=== PATIENT | male | born 1975 | race Caucasian/White ===

== ENCOUNTER → 2017-12-17 | Outpatient (CLI) | payer OTHER ==
--- NOTE | 2017-12-19 08:17 | MR ---
EXAMINATION TYPE: MR cervical spine wo con DATE OF EXAM: 12/17/2017 COMPARISON: NONE HISTORY: Neck / shoulder pain, previous surgery, ordered Without Contrast TECHNIQUE: Multiplanar, multisequence images of the cervical spine were acquired. FINDINGS: Anterior cervical fusion device is seen spanning C4-C6. There is no evidence of postsurgical malalign ment. The spinal cord signal is patchy at the postsurgical levels centrally without extension to bartolome reanna acute edema. This indicates mild myelomalacia. Vertebral body heights are maintained. Bone marro w signal is unremarkable. Visualized portions of the posterior fossa are grossly unremarkable. C2-C3: No evidence for degenerative disc disease. No disc bulge/herniation or protrusion. No Canal stenosis. Foramina are patent bilaterally. C3-C4: There is a central broad-based disc herniation abutting the ventral subarachnoid space and flory tral cervical cord without alteration in cord signal. This creates mild spinal canal stenosis and mil d left neural foraminal narrowing. Right neuroforamen is patent. C4-C5: No evidence for degenerative disc disease. No disc bulge/herniation or protrusion. No Canal stenosis. Foramina are patent bilaterally. C5-C6: No evidence for degenerative disc disease. No disc bulge/herniation or protrusion. No Canal stenosis. Mild bilateral uncovertebral hypertrophy minimally narrows the bilateral neural foramen. C6-C7: There is a left paracentral disc herniation effacing the ventral subarachnoid space and contac ting the ventral cord creating mild spinal canal stenosis. No abnormal cord signal seen at this level . There is mild bilateral neural foraminal narrowing. No left neural foraminal narrowing is seen. C7-T1: No evidence for degenerative disc disease. No disc bulge/herniation or protrusion. No Canal stenosis. Foramina are patent bilaterally. IMPRESSION: 1. Disc herniations above and below the anterior cervical fusion levels. Central disc herniation at C 3-C4 creating mild spinal canal stenosis and mild left neural foraminal narrowing and left paracentra l disc herniation at C6-C7 creating mild spinal canal stenosis and mild bilateral neural foraminal na rrowing. 2. No evidence of postsurgical malalignment. No vertebral body height loss. 3. Subtle mildly abnormal signal from C4 through C6 within the spinal cord indicating mild myelomalac ia as there is no cord expansion.
== END | disposition home or self-care (01) ==
LOC: RADMRIMAIN 19:44
PROVIDERS: ATTEND Orthopaedic Surgery Orthopaedic Surgery of the Spine
DX: M48.02 Spinal stenosis, cervical region (principal); M99.71 Connective tissue and disc stenosis of intervertebral foramina of cervical region; M50.21 Other cervical disc displacement, high cervical region; Z98.1 Arthrodesis status
CPT/HCPCS: 72141

== ENCOUNTER 2023-10-22 08:51 | Emergency (ER) | payer MEDICARE, OTHER ==
--- NOTE | 2023-10-22 09:04 | ED ---
Neck Injury/Pain HPI - General Chief Complaint: Neck Pain/Injury Stated Complaint: Neck/Jaw Pain Time Seen by Provider: 10/22/23 08:56 Source: patient, RN notes reviewed Mode of arrival: ambulatory Limitations: no limitations - History of Present Illness Initial Comments: This is a 47-year-old male who presents to the emergency department for neck pain. Patient has a history of chronic neck pain including multiple herniated disks. He had an ACDF procedure in [address] Melara. States that he does still have disc herniations above and below the area of the fusions, and has continued to have severe episodes of pain. However, over the last couple of days the pain has gotten substantially worse. He has pains on both sides of the neck and this morning has been unable to turn his head due to the pain. He has taken multiple [id number] medications without any relief in symptoms. Most recently took Aleve about an hour before arrival. MD Complaint: neck pain - Related Data Home Medications Medication Instructions Recorded Confirmed Ibuprofen [Motrin Ib] 200 - 800 mg PO Q8H PRN 10/22/23 10/22/23 Previous Rx's Medication Instructions Recorded Ibuprofen [Motrin] 800 mg PO Q8H PRN #30 tab 10/22/23 methocarbamoL [Robaxin-750] 1,500 mg PO TID PRN #30 tab 10/22/23 Allergies Allergy/AdvReac Type Severity Reaction Status Date / Time Penicillins Allergy Unknown Verified 10/22/23 10:41 Childhood Review of Systems ROS Statement: Those systems with pertinent positive or pertinent negative responses have been documented in the HPI. ROS Other: All systems not noted in ROS Statement are negative. Past Medical History Additional Past Surgical History / Comment(s): spinal surgery Smoking Status: Current every day smoker Past Alcohol Use History: None Reported Past Drug Use History: Marijuana General Exam Limitations: no limitations General appearance: alert, in distress Head exam: Present: atraumatic, normocephalic, normal inspection Neck exam: Present: other (The bilateral neck muscles are very tight on palpation and exquisitely tender. Range of motion limited by pain.) Respiratory exam: Present: normal lung sounds bilaterally. Absent: respiratory distress, wheezes, rales, rhonchi, stridor Cardiovascular Exam: Present: regular rate, normal rhythm, normal heart sounds. Absent: systolic murmur, diastolic murmur, rubs, gallop, clicks Neurological exam: Present: alert, oriented X3, CN II-XII intact Psychiatric exam: Present: normal affect, normal mood Skin exam: Present: warm, dry, intact, normal color. Absent: rash Course Vital Signs 10/22/23 10/22/23 10/22/23 08:52 10:57 13:10 Temperature 98.8 F 97.9 F Pulse Rate 85 64 74 Respiratory 18 16 18 Rate Blood Pressure 138/88 122/74 123/76 O2 Sat by Pulse 100 99 98 Oximetry Medical Decision Making - Medical Decision Making This is a 47-year-old male who presents to the emergency department for neck pain. Was pt. sent in by a medical professional or institution? @ -No Did you speak to anyone other than the patient for history? @ -No Did you review nursing and triage notes? @ -Yes, and I agree, it is accurate with regards to the patient's symptoms. Were old charts reviewed? @ -No Differential Diagnosis? @ -Differential Neck Pain: Fracture, dislocation, contusion, strain, DDD, disc herniation, this is not meant to be an all-inclusive list. EKG interpreted by me (3pts min.)? @ -Not obtained X-rays interpreted by me (1pt min.)? @ -X-ray of the cervical spine obtained. My interpretation identifies no acute fractures. CT interpreted by me (1pt min.)? @ -Not obtained U/S interpreted by me (1pt. min.)? @ -Not obtained What testing was considered but not performed? (CT, X-rays, U/S, labs)? Why? @ -None What meds were considered but not given? Why? @ -None Did you discuss the management of the patient with other professionals? @ -No Did you reconcile home meds? @ -No Was smoking cessation discussed for >3mins.? @ -No Was critical care preformed (if so, how long)? @ -No Were there social determinants of health that impacted care today? How? (Homelessness, low income, unemployed, alcoholism, drug addiction, transportation, low edu. Level, literacy, decrease access to med. care, [facility], rehab)? @ -No Was there de-escalation of care discussed even if they declined? (Discuss DNR or withdrawal of care, Hospice)? @ -No What co-morbidities impacted this encounter? (DM, HTN, Smoking, COPD, CAD, Cancer, CVA, Hep., AIDS, mental health diagnosis, sleep apnea, morbid obesity)? @ -DDD Was patient admitted / discharged? @ -Discharged. X-ray of the cervical spine obtained demonstrating degenerative changes without any acute process. Patient required multiple doses of pain medication, including Toradol, Norflex, Morphine, Dilaudid, and Valium. He continued to be in severe pain despite receiving multiple pain medications. I did offer admission for pain control and evaluation by Dr. Melara, who the patient has seen in the past. Patient however declined and states that he would rather go home instead. Prescription for ibuprofen and Robaxin provided with dosing instructions reviewed. Patient discharged home in stable condition and advised to follow-up with orthopedics. Undiagnosed new problem with uncertain prognosis? @ -None Drug Therapy requiring intensive monitoring for toxicity (Heparin, Nitro, Insulin, Cardizem)? @ -None Were any procedures done? @ -None Diagnosis/symptom? @ -Neck pain Acute, or Chronic, or Acute on Chronic? @ -Acute on chronic Uncomplicated (without systemic symptoms) or Complicated (systemic symptoms)? @ -Uncomplicated Side effects of treatment? @ -None Exacerbation, Progression, or Severe Exacerbation] @ -Exacerbation Poses a threat to life or bodily function? @ -The pain is limiting his ability to function. Return precautions reviewed in depth, the patient is instructed to return to the emergency department with any new, worsening, or concerning symptoms. Patient verbalized understanding. This case was discussed in detail with the attending ED physician, Dr. Ellis. Presentation, findings, and treatment plan discussed in detail as well. - Radiology Data Radiology results: report reviewed, image reviewed Disposition Clinical Impression: Neck pain Disposition: HOME SELF-CARE Instructions (If sedation given, give patient instructions): Neck Pain (ED), Chronic Neck Pain (DC) Additional Instructions: Return to the emergency department with any new, worsening, or concerning symptoms. Alternate with ibuprofen and Tylenol as needed for pain relief. Take the Robaxin as 1-2 tablets up to 3-4x daily. Follow up with your primary care provider in 1-2 days and follow up with Dr. Melara. Prescriptions: Ibuprofen [Motrin] 800 mg PO Q8H PRN #30 tab PRN Reason: Pain methocarbamoL [Robaxin-750] 1,500 mg PO TID PRN #30 tab PRN Reason: Pain Is patient prescribed a controlled substance at d/c from ED?: No Referrals: None,Stated [Primary Care Provider] - 1-2 days Time of Disposition: 12:54
[2023-10-22] MEDS: KETOROLAC 15 MG/ML 1 ML VIAL IVP STA ×2 (09:10→10:53)
[2023-10-22] MEDS: ORPHENADRINE 30 MG/ML 2 ML VIAL IVP STA (09:12)
[2023-10-22] MEDS: MORPHINE SULFATE 4 MG/ML SYRINGE IVP STA (09:14)
[2023-10-22] MEDS: DEXAMETHASONE SOD PHOSPHATE 10 MG/ML 1 ML VIAL IVP STA (09:43)
--- NOTE | 2023-10-22 10:02 | XR ---
EXAMINATION TYPE: XR cervical spine comp DATE OF EXAM: 10/22/2023 COMPARISON: 07/07/2017 HISTORY: Pain TECHNIQUE: 5 view cervical spine FINDINGS: There is anterior cervical fusion C4-C6. Prevertebral space is normal. Posterior spinal powell ellar line is intact. Some mild disc space narrowing posteriorly at C3-4 is present. Disc spacers are utilized anterior cervical fusion level see 4-5 and C5-6. Remaining disc heights appear preserved. S ome foraminal narrowing may be present C5-6 C6-7 on the right. Foramen are patent. Odontoid appears u nremarkable. IMPRESSION: 1. Mild degenerative disc changes discussed above
[2023-10-22] MEDS: HYDROmorphone 1 MG/ML 1 ML SYRINGE IVP STA ×2 (10:03→12:26)
[2023-10-22 13:29] VITALS: BP 123/76; PULSE 74; RESP 18; TEMP 97.9
== END 2023-10-22 13:11 | disposition home or self-care (01) ==
LOC: EC 08:51
DX: G89.29 Other chronic pain (principal); M54.2 Cervicalgia; F17.200 Nicotine dependence, unspecified, uncomplicated; F12.90 Cannabis use, unspecified, uncomplicated; Z88.0 Allergy status to penicillin
CPT/HCPCS: 99284; 96374; 96375 ×4; 96376 ×2; 72050; J2270; J2360; J3360; J1170; J1885